=== PATIENT | male | born 1985 | race Two or more races ===

== ENCOUNTER 2025-06-13 23:14 | Emergency (ER) | payer OTHER ==
[~2025-06-13] VITALS: Ht 167.6 cm; Wt 104.3 kg
[2025-06-13] MEDS ORDERED: AVAPRO150 MG PO (23:21)
[2025-06-13] MEDS ORDERED: TOPROL XL50 M1 PO (23:21)
[2025-06-13] MEDS ORDERED: NORVASC2.5 MG PO (23:21)
[2025-06-14 00:07] LABS: BASO % 0.6 % (0.1-1.2); EOS # 0.03 (0.04-0.54); EOS % 0.5 % (0.7-7.0); LYMPH # 2.25 (1.18-3.74); LYMPH % 34.0 % (19.3-53.1); MEAN PLATELET VOLUME 9.70 fl (9.4-12.4); MONO # 0.79 (0.24-0.82); MONO % 12.0 % (4.7-12.5); NEUT # 3.49 (1.56-6.13); NEUT % 52.7 % (34.0-71.1); RED CELL DISTRIBUTION WIDTH 13.4 % (11.6-14.4)
[2025-06-14] MEDS ORDERED: 0.9 % SODIUM CHLORIDE 500 ML IV ONE (00:45)
[2025-06-14 01:00] LABS: COVID-19 AG POSITIVE (NEGATIVE)
[2025-06-14] MEDS ORDERED: DOLOGESIC-DF 51 EACH PO (04:17)
[2025-06-14] MEDS ORDERED: ZYNCOF 20-400120 ML PO (04:17)
[2025-06-14 04:25] VITALS: BP 100/70; O2SAT 97
== END 2025-06-14 04:27 ==
LOC: ER 23:14
PROVIDERS: Emergency Medicine
DX: U07.1 COVID-19 (principal)

== ENCOUNTER 2025-07-20 00:01 | Emergency (ER) | payer OTHER ==
[~2025-07-20] VITALS: Ht 165.1 cm; Wt 104.3 kg
[~2025-07-20 00:01] MED LIST: AVAPRO150 MG PO; DOLOGESIC-DF 51 EACH PO; NORVASC2.5 MG PO; TOPROL XL50 M1 PO; ZYNCOF 20-400120 ML PO
[2025-07-20] MEDS ORDERED: KETOROLAC TROMETHAMINE 60 MG VIAL IM STA (01:03)
[2025-07-20] MEDS ORDERED: ORPHENADRINE CITRATE 30 MG/ML AMPUL IM STA (01:03)
[2025-07-20] MEDS ORDERED: KETO10TA2 PO (01:50)
[2025-07-20] MEDS ORDERED: NORFLEX100MG PO (01:50)
[2025-07-20] MEDS ORDERED: ORPHENADRINE CITRATE 30 MG/ML AMPUL ONE (01:52)
[2025-07-20] MEDS ORDERED: KETOROLAC TROMETHAMINE 60 MG VIAL IM ONE (01:54)
== END 2025-07-20 02:15 ==
LOC: ER 00:11
DX: M54.50 Low back pain, unspecified (principal); I10 Essential (primary) hypertension